=== PATIENT | male | born 1990 | race Caucasian/White ===

== ENCOUNTER 2023-05-25 19:31 | Outpatient (CLI) | payer BC, SELFPAY | END 2023-05-25 19:32 | disposition home or self-care (01) | LOC: AMB 06-04 11:20 | PROVIDERS: Visit Provider Family Medicine | DX: R20.2 Paresthesia of skin (principal); R53.1 Weakness; R25.1 Tremor, unspecified; R11.0 Nausea | CPT/HCPCS: A0425; A0427 ==